=== PATIENT | male | born 1965 | race Caucasian/White ===

== ENCOUNTER 2022-06-28 18:55 | Emergency (ER) | payer BC, SELFPAY ==
[2022-06-28 18:59] VITALS: BP 187/107; PULSE 66; TEMP 36.7; O2SAT 96; BMI 33.9
--- NOTE | 2022-06-28 19:19 | ED_ITS ---
Did not see this patient. Signing to remove from cue. --Vidya HPI - Abdominal Pain General Time Seen by Provider: 19:19 Date Seen: 06/28/22 Chief Complaint: Abdominal Pain Stated Complaint: abdominal pain Time Seen by Provider: 06/28/22 19:19 Source: patient and RN notes reviewed Mode of arrival: ambulatory Limitations: no limitations History of Present Illness HPI narrative: Patient is a 56-year-old male coming in with epigastric pain that started this morning. He ate 2 [employer] bars and coffee for breakfast. Cannot say that the pain really started in any temporal relationship to that. He has not eaten since then though, just has a diminished appetite. No nausea or vomiting. States he has had normal bowel movements, is passing flatus, no change in urination. No fevers or chills. He did take some Tylenol, 1000 mg, earlier because of the pain and did take the edge off. He is still having pain. We did discussed pain management in he would agree to some Toradol. He has never had any abdominal surgeries before. No acute illness with any nausea vomiting diarrhea or respiratory symptoms. Does drink alcohol but only socially, has not had any in months. He does not feel any chest pain with this, does not radiate into his chest. When he takes a deep breath, can feel it in the epigastric area but feels like it certainly in his stomach and not in his chest by the discomfort is. MD elicited complaint: abdominal pain Related Data Home Medications Medication Instructions Recorded Confirmed lisinopril 10 mg tablet 10 mg PO DAILY 06/28/22 06/29/22 rosuvastatin 10 mg tablet 10 mg PO QPM 06/28/22 06/29/22 verapamil 120 mg tablet,extended 120 mg PO DAILY 06/28/22 06/29/22 release Previous Rx's Medication Instructions Recorded oxycodone 5 mg tablet 5 mg PO Q6H PRN pain #15 tabs 06/29/22 sennosides 8.6 mg capsule (senna) 8.6 mg PO DAILY PRN constipation 06/29/22 #90 caps Allergies Allergy/AdvReac Type Severity Reaction Status Date / Time No Known Drug Allergies Allergy Verified 06/29/22 10:15 Review of Systems Status of ROS Reports: 10 or more systems reviewed and unremarkable except as noted in History and below PFSH PFSH Social History Smoking Status: Never smoker Do you use any of these nicotine containing products: None Second hand tobacco smoke exposure: No How often do you have a drink containing alcohol: never AUDIT-C Alcohol total score: 0 Non-prescribed substance use: denies use Exam Const: Vital Signs, click to edit/add: Vital Signs - 24 hr 06/28/22 18:59 Temperature 98.0 F Pulse Rate [Pulse Oximeter] 66 Blood Pressure [Ri ght Upper Arm] 187/107 H Pulse Oximetry 96 Oxygen Delivery Me thod Room Air Documenting provider has reviewed patient's vital signs: yes Common normals: no apparent distress, oriented x3, no limitations, healthy appearing and alert General appearance: cooperative, comfortable, well kempt and well developed Nutritional appearance: overweight HENMT: Common normals: normocephalic, head/scalp atraumatic, hearing grossly normal bilaterally, external nose normal, nasal mucous membranes and turbinates normal and moist oral mucous membranes Head and scalp: normocephalic and atraumatic Nose: external nose normal and nasal mucous membranes and turbinates normal Eye: Common normals: PERRL, EOMs intact bilaterally, conjunctivae normal and no scleral icterus Conjunctiva: conjunctiva(e) normal Pupil: PERRL Neck & C-Spine: Common normals: full ROM, no lymphadenopathy, supple and no meningeal signs Resp: Common normals: normal respiratory effort, no retractions, no use of accessory muscles and clear to auscultation bilaterally Auscultation: clear to auscultation bilaterally Cardio: Common normals: regular rate, regular rhythm, S1 normal heart sound, S2 normal heart sound, no gallops, no clicks and no murmurs Rate: regular rate Rhythm: regular rhythm Heart sounds: S1 normal and S2 normal GI: Common normals: Normal to inspection, nondistended, normoactive bowel sounds present, soft to palpation, no hepatosplenomegaly and no masses Palpation: soft and no hepatosplenomegaly Other: Patient points to the epigastric area where the pain is, seems to be somewhat deeper than what I can palpate, maybe increases his pain somewhat. Neuro: Common normals: oriented x3 Sensorium/orientation: alert Meningeal signs: no meningeal signs Psych: Appearance: well kempt Course Course Hospital Course: Patient will be given IV Toradol for pain management. We will proceed with CT imaging. Will be getting full complement of labs. His symptomatology includes gallbladder, pancreas, upper GI a including gastritis ulcer disease. Will do troponin just to ensure this isn't an atypical presentation of cardiac manifestation. He will let us know if his pain is not improved with the Toradol. He understands he may need a gallbladder ultrasound if there should be concerns. Reevaluation(s) Reevaluation #1: Have shown patient a picture of his stones in his gallbladder. Reviewed acute cholecystitis. He is going to be allowed to go home this evening given he is pain-free, liver enzymes are elevated. He understands the plan, is in agreement with this. Time: 20:54 Additional Reevaluation(s): Given the normal EKG and his current laboratory evaluation, I find patient clear for trial of anesthesia for acute cholecystitis for gallbladder removal. Consultations Consultation #1: Patient case was discussed with our surgeon on-call . She did look at the CT, reviewed the case with me. She agrees that this is acute cholecystitis. The complication is is that we have no beds. Patient is hemodynamically stable, afebrile. His pain is improved after the Toradol. We are going to start oral Augmentin, send him with a few pain pills and he will return tomorrow to have his gallbladder out. If he has worsening symptoms overnight, he will return to the ED and we will intervene and hold him here until surgery time. He will need an EKG and COVID. Time: 20:54 Vital Signs Vital signs: Initial Vital Signs Temperature 98.0 F 06/28/22 18:59 Temperature Source Temporal Artery Scan 06/28/22 18:59 Pulse Rate 66 06/28/22 18:59 Blood Pressure 187/107 H 06/28/22 18:59 Blood Pressure Mean 133 H 06/28/22 18:59 Blood Pressure Position Sitting 06/28/22 18:59 Pulse Oximetry 96 06/28/22 18:59 Oxygen Delivery Method Room Air 06/28/22 18:59 Vital Signs Temperature 98.0 F 06/28/22 18:59 Pulse Rate 66 06/28/22 18:59 Blood Pressure 187/107 H 06/28/22 18:59 Pulse Oximetry 96 06/28/22 18:59 Oxygen Delivery Method Room Air 06/28/22 18:59 Temperature 98.0 F 06/28/22 18:59 Pulse Rate 66 06/28/22 18:59 Blood Pressure 187/107 H 06/28/22 18:59 Pulse Oximetry 96 06/28/22 18:59 Oxygen Delivery Method Room Air 06/28/22 18:59 MDM - Abdominal Pain Lab Data Attestation: I reviewed the patient's lab results. Labs: Lab Results 06/28/22 06/28/22 Range/Units 19:13 21:00 WBC 14.53 H (4.50-11.00) K/uL RBC 5.61 (4.30-5.90) m/uL Hgb 15.4 (13.5-17.5) gm/dL Hct 46.1 (37.0-53.0) % MCV 82 (80-100) fL MCH 28 (26-34) pg MCHC 33 (32-36) gm/dL RDW Coeff of Gloria 13.5 (11.5-15.5) % Plt Count 267 (140-440) K/uL Neut % (Auto) 74.1 H (42.0-72.0) % Lymph % (Auto) 18.7 L (20-44) % [place] % (Auto) 6.0 (0.0-11.0) % Eos % (Auto) 0.8 (0.0-7.0) % Baso % (Auto) 0.1 (0.0-3.0) % Neut # (Auto) 10.80 H (1.7-7.0) K/uL Lymph # (Auto) 2.70 (0.90-2.90) K/uL [place] # (Auto) 0.90 (0.00-0.90) K/UL Eos # (Auto) 0.10 (0.00-0.50) K/uL Baso # (Auto) 0.00 (0.00-0.30) K/uL Sodium 136 (135-149) mmol/L Potassium 3.8 (3.6-5.1) mmol/L Chloride 103 (96-114) mmol/L Carbon Dioxide 24 (20-32) mmol/L BUN 17 (7-30) mg/dL Creatinine 0.7 (0.5-1.5) mg/dL Estimated Creat Clear 127.79 Estimated GFR 107 ml/min Glucose 117 H (60-115) mg/dL Lactate 1.2 (0.5-1.9) mmol/L Calcium 9.0 (8.4-10.6) mg/dL Total Bilirubin 0.8 (0.1-1.5) mg/dL Direct Bilirubin 0.2 (0.0-0.5) mg/dL AST 30 (12-35) U/L ALT 38 (4-50) U/L Alkaline Phosphatase 85 (40-150) U/L Troponin I < 0.01 L (0.01-0.04) ng/mL C-Reactive Protein 0.7 (0.5-1.0) mg/dL NT-Pro-B Natriuret Pep 29 pg/mL Total Protein 7.9 (6.0-8.3) g/dL Albumin 4.6 (3.3-5.0) g/dL Lipase 74 (23-300) U/L SARS-CoV-2 (PCR) Negative SARS-CoV-2 (Negative) Imaging Data CT scan - abdomen: My impression: I see gallstones the gallbladder. Have called our surgeon to look at the imaging. Still awaiting Radiology over-read. ECG Data Attestation: I personally reviewed and interpreted this ECG as follows: (Sinus rhythm, 67 beats per minute. No ischemia. QT corrected 450 milliseconds. No concerning change on this EKG.) ECG interpretation date: 06/28/22 ECG interpretation time: 21:00 Discharge Plan Discharge Clinical Impression: Acute calculous cholecystitis Patient Disposition: Home, Self-Care Condition: Stable Instructions: Cholecystitis (ED), Laparoscopic Cholecystectomy (DC) Additional Instructions: Take Augmentin between 7 to 8:00 a.m. tomorrow morning with small sip of water. Otherwise, nothing to eat or drink after midnight tonight. You can use pain management if needed with just a small sip of water overnight. Would recommend 1000 mg of Tylenol every 8 hours baseline for pain. Have provided 4 tablets of 5 mg oxycodone which can be used for more severe pain, follow prescription instructions. Again, when taking pain medicines or the Augmentin, just a small sips of fluids, just enough to get the medicines down. You are going to return tomorrow morning likely around 9:00 a.m. to check in for your surgery. If staff does not contact you with a specific time, would plan on being here around 9:00 a.m. to check-in. Otherwise, if you have severe abdominal pain overnight, develops fever, have vomiting, do return to the ER and we will stabilize while you await surgery. If you take your verapamil in the morning, would recommend that you still take that with a small sip of water. Lisinopril can await until after your surgery is done if this is a morning medicine. Activity Level: Activity as Tolerated Diet Detail: Nothing to eat or drink after midnight with the exception of small sips of water to take medications. Prescriptions: No Action oxycodone 5 mg tablet 5 mg PO Q6H PRN (Reason: pain) Qty: 15 0RF senna 8.6 mg capsule 8.6 mg PO DAILY PRN (Reason: constipation) Qty: 90 0RF verapamil 120 mg tablet extended release 120 mg PO DAILY lisinopril 10 mg tablet 10 mg PO DAILY rosuvastatin 10 mg tablet 10 mg PO QPM Stand Alone Forms: [employer] Info Instructions
--- NOTE | 2022-06-28 19:29 | CRLHL7_ITS ---
For Patients: As a result of the Century Cures Act, medical imaging exams and procedure reports are released immediately into your electronic medical record. You may view this report before your referring provider. If you have questions, please contact your health care provider. INDICATION: Epigastric abdomen pain. Decreased appetite. TECHNIQUE: CT abdomen and pelvis acquired with 99 cc Isovue 370 IV contrast. COMPARISON: None. FINDINGS: Lower chest: Unremarkable. Liver: Unremarkable. Normal in size and attenuation. No suspicious masses. Gallbladder and bile ducts: Multiple gallbladder stones. No sign of inflammation and no biliary dilatation. Pancreas: Unremarkable. No mass or inflammation. Spleen: Unremarkable. Normal in size. No masses. Adrenal glands: Unremarkable. No nodules. Kidneys: There are bilateral benign-appearing cysts. Kidneys otherwise unremarkable. No hydronephrosis. GI tract: Unremarkable. Normal in caliber. No sign of mass or inflammation. Normal appendix. Vasculature: Abdominal aorta is normal in caliber. Mesenteric arteries are patent. Lymph nodes: No lymphadenopathy. Peritoneum/Abdominal Wall: Unremarkable. No sign of mass or infiltration. No free air or significant free fluid. Pelvis: Unremarkable. Bones: Unremarkable for age. IMPRESSION: Cholelithiasis with multiple moderately large gallbladder stones. No other CT signs of acute cholecystitis and no biliary dilatation. Remainder of the exam is unremarkable. Please note that all CT scans at this facility use dose modulation, iterative reconstruction, and/or weight-based dosing when appropriate to reduce radiation dose to as low as reasonably achievable. Dictated by Chceo Agawral MD @ 06/28/2022 9:33:15 PM (Electronically Signed)
[2022-06-28 19:36] LABS: Lactate* 1.2 mmol/L (0.5-1.9)
[2022-06-28] MEDS: KETOROLAC 15 MG/ML inj IVP (19:38)
[2022-06-28 19:42] LABS: Basophils Percent Auto 0.1 % (0.0-3.0); Eosinophils Percent Auto 0.8 % (0.0-7.0); Hematocrit 46.1 % (37.0-53.0); Hemoglobin* 15.4 gm/dL (13.5-17.5); Immature Granulocytes Pct Auto 0.3 %; Lymphocytes Percent Auto 18.7 % (20-44); Mean Corpuscular HGB Conc 33 gm/dL (32-36); Mean Corpuscular Hemoglobin 28 pg (26-34); Mean Corpuscular Volume 82 fL (80-100); Neutrophils Percent Auto 74.1 % (42.0-72.0); Platelet Count* 267 K/uL (140-440); RDW Coefficient of Variation % 13.5 % (11.5-15.5); Red Blood Count 5.61 m/uL (4.30-5.90); White Blood Count* 14.53 K/uL (4.50-11.00)
[2022-06-28 19:44] LABS: Slide Review Reflex No
[2022-06-28 19:48] LABS: Chloride* 103 mmol/L (96-114)
[2022-06-28 19:49] LABS: Albumin* 4.6 g/dL (3.3-5.0); Sodium* 136 mmol/L (135-149)
[2022-06-28 19:50] LABS: Potassium* 3.8 mmol/L (3.6-5.1)
[2022-06-28 19:51] LABS: Creatinine* 0.7 mg/dL (0.5-1.5); Est. Creatinine Clearance* 127.79; Estimated Glomerular Filt Rate 107 ml/min
[2022-06-28 19:52] LABS: Alkaline Phosphatase* 85 U/L (40-150); Aspartate Amino Transferase* 30 U/L (12-35); Bilirubin Direct* 0.2 mg/dL (0.0-0.5); Bilirubin Total* 0.8 mg/dL (0.1-1.5); Blood Urea Nitrogen* 17 mg/dL (7-30); Carbon Dioxide* 24 mmol/L (20-32); Lipase* 74 U/L (23-300); Total Protein* 7.9 g/dL (6.0-8.3)
[2022-06-28 19:53] LABS: Alanine Aminotransferase* 38 U/L (4-50); Glucose* 117 mg/dL (60-115)
[2022-06-28 19:55] LABS: C Reactive Protein* 0.7 mg/dL (0.5-1.0)
[2022-06-28 20:04] LABS: NT Pro B Type NatriureticPept* 29 pg/mL
[2022-06-28 20:17] LABS: Troponin I* < 0.01 ng/mL (0.01-0.04)
[2022-06-28] MEDS: AMOXICILLIN/CLAVULANATE 875 mg/125 mg TABLET PO ×2 (21:00)
--- NOTE | 2022-06-28 21:31 | ED.NURSE ---
Discharge paperwork was reviewed in depth by charge nurse. Medication (antibiotic) to take in the morning with a sip of water was also reviewed as well. Pt understands he can be here no later that 0830 tomorrow morning for procedure.
[2022-06-28 21:53] LABS: SARS PCR* Negative SARS-CoV-2 (Negative)
== END 2022-06-28 21:09 | disposition home or self-care (01) ==
PROVIDERS: Emergency Provider Family Medicine
DX: K80.00 Calculus of gallbladder with acute cholecystitis without obstruction (principal)
CPT/HCPCS: 36415; 74177; 80053; 82248; 83605; 83690; 83880; 84484; 85025; 86140; 87635; 96374; 99284; A9270; J1885; Q9967

== ENCOUNTER 2022-06-29 09:53 | Day surgery (SDC) | payer BC, SELFPAY ==
[2022-06-29] VITALS (13 sets, daily range): BP systolic 113–174; BP diastolic 76–106; PULSE 71–89; RESP 12–20; TEMP 36.7–38; O2SAT 16–95; BMI 34.3
[2022-06-29] MEDS: LACTATED RINGERS 1000 ML 1,000 ML 100 ML IV ×2 (10:20→12:30)
--- NOTE | 2022-06-29 10:47 | P.GSCN_ITS ---
History of Present Illness Consult details Date Seen: 06/29/22 Consult date: 06/29/22 Narrative: Patient presented to the emergency department last evening for worsening epigastric abdominal pain. He says that the pain came on yesterday around 9:00 a.m. in the morning. The pain was centered in the mid upper abdomen, but has since migrated to the right side under his diaphragm. He has never had pain like this before. When he was in the emergency department yesterday the pain was partially helped by pain medications. This morning he took his last pain pill at 4:00 a.m. and is rating the pain 8/10. He has never had abdominal surgery before. He does report some associated nausea, no emesis. Low-grade fever on admission here, denies any fever or chills at home. He did take a few pills of Augmentin, which were prescribed to him at the emergency department. Review of Systems Status of ROS: Reports: 10 or more systems reviewed and unremarkable except as noted in History and below PFSH PFS Social History Smoking Status: Never smoker Do you use any of these nicotine containing products: None Second hand tobacco smoke exposure: No How often do you have a drink containing alcohol: never AUDIT-C Alcohol total score: 0 Non-prescribed substance use: denies use Meds Home Medications and Allergies Home Medications Medication Instructions Recorded Confirmed Type lisinopril 10 mg tablet 10 mg PO DAILY 06/28/22 06/29/22 History rosuvastatin 10 mg tablet 10 mg PO QPM 06/28/22 06/29/22 History verapamil 120 mg tablet,extended 120 mg PO DAILY 06/28/22 06/29/22 History release Allergies Allergy/AdvReac Type Severity Reaction Status Date / Time No Known Drug Allergies Allergy Verified 06/29/22 10:15 Exam Narrative: Exam Narrative: General: Alert and oriented, no acute distress Respiratory: Equal breath rise bilaterally, maintained on room air CV: Regular rhythm and rate, well perfused Abdomen: Soft, tender to palpation epigastric and right upper quadrant with no guarding or rebound Const: Vital Signs, click to edit/add: Vital Signs - 24 hr 06/29/22 10:30 Temperature 100.4 F H Pulse Rate 81 Respiratory Rate 20 Blood Pressure 174/106 H Pulse Oximetry 95 Oxygen Delivery Me thod Room Air Results Labs Labs: All other labs normal. LFTs within normal limits. WBC [address] scan report/results: report reviewed and image reviewed Assessment and Plan Assessment and plan (1) Acute calculous cholecystitis: Status: Acute Plan Patient is a 56-year-old male, otherwise healthy, who presented to the emergency department with the workup and clinical findings consistent with acute cholecystitis. I had a detailed conversation with the patient regarding the diagnosis of acute cholecystitis. We discussed the treatment options including observation with diet modification and laparoscopic cholecystectomy. We discussed the risks of surgery (including but not limited to) the risks of bleeding, infection, injury to other structures in the abdomen including bile duct injury, bile leak and conversion to an open operation. We discussed the possibility that the patient's pain not improve with surgery. We discussed the possibility of perman ent post-operative diarrhea that may require medical management. Additionally, the conceivably of complications requiring additional surgery or further hospitalization were also discussed including the risks of MT, respiratory failure, stroke and blood clots. The patient voiced an understanding of our conversation, had the opportunity to ask questions, agreed to accept the risks of surgery and asked that we proceed with surgery.
[2022-06-29] MEDS: SODIUM CHLORIDE 0.9 % (FLUSH) 10 ML SYRINGE IVF (10:52)
--- NOTE | 2022-06-29 10:55 | W.ANESCHARGE ---
Anesthesia Charges Start Date/Time Anesthesia Start Date: 06/29/22 Anesthesia Start Time: 11:05 Stop Date/Time Anesthesia Stop Date: 06/29/22 Anesthesia Stop Time: 13:15
[2022-06-29] MEDS: PIPERACILLIN/TAZOBACTAM 3.375 GM INJ IVPB (11:20)
[2022-06-29] MEDS: BUPIVACAINE 0.5% 30 ML 20 ML INJECTION (13:02)
--- NOTE | 2022-06-29 13:04 | P.GSOP_ITS ---
Operative Note Date of procedure: 06/29/22 Pre-op diagnosis: Acute cholecystitis Post-op diagnosis: Same Type of Procedure: Laparoscopic cholecystectomy Indications: Patient is a 56-year-old male who presented to the emergency department with signs and symptoms consistent with acute cholecystitis. Risks and benefits of operative intervention were discussed at length with the patient. Risks included but was not limited to: Bleeding, infection, risk of damage to surrounding structures, possible need for additional procedures, possible need to convert to an open operation and postoperative complications such as pneumonia, pulmonary emboli or MS. All questions and concerns were addressed with the patient agreeing to proceed. Procedure Description: After discussing the risks and benefits of the procedure, the patient signed informed consent.? The operative site was marked and the patient was brought to the operating room and placed on the operating table in supine position.? Care was taken to pad the patient's pressure points.?? The patient was then intubated by anesthesia.?? The operative site was then prepped and draped in the usual sterile fashion.? A time-out was then performed. Entrance to the abdomen was gained via a 5 mm Visiport in the left upper quadrant. The abdomen was insufflated and briefly surveyed for signs of injury. There was none. 11 mm umbilical port was placed as well as 2 working ports along the right costal margin. Patient was then placed in reverse Trendelenburg position with the right side up. The gallbladder fundus was grasped and retracted cephalad. A significant amount of omental adhesions were covering the gallbladder. These were taken down carefully with electrocautery. The infundibulum was very distended, once it was visualized. This was decompressed with a laparoscopic needle with removal of 60 mL sludge. The infundibulum was grasped. A combination of hook cautery and blunt dissection was used to carefully dissect out the cystic duct and artery until they could clearly be seen entering the gallbladder without any intervening structures. This portion of the dissection was made difficult secondary to the associated inflammation and edema. The gallbladder was dissected off the cystic plate to achieve the critical view. Once this was achieved the cystic duct and artery (which was found on the posterior aspect of the cystic duct) were each clipped with 2 clips proximally and 1 clip distally and transected with the scissors. The gallbladder was then taken off of the liver bed. And removed from the abdomen using an Endo- Catch bag. The gallbladder bed was surveyed for hemostasis. A small amount of bile which had spilled was suctioned from the abdomen. the ports were then removed under direct vision. The umbilical port fascia was closed with 0 Vicryl. The skin was closed with absorbable subcuticular suture. Instrument sponge and needle counts were correct at the end of the case. The patient was then woken and transferred to the PACU in stable condition. Findings: Acute cholecystitis Anesthesia: GETA Surgeon: Hoda Gil MD Estimated blood loss (mL): 5 Specimen: Gallbladder Condition: stable Disposition: same day
--- NOTE | 2022-06-29 13:15 | W.ANESCHARGE ---
Anesthesia Charges Start Date/Time Anesthesia Start Date: 06/29/22 Anesthesia Start Time: 11:05 Stop Date/Time Anesthesia Stop Date: 06/29/22 Anesthesia Stop Time: 13:15
[2022-06-29] MEDS: fentaNYL 100 MCG/2 ML inj 50 MCG IVP ×2 (13:26→13:41)
[2022-06-29] MEDS: KETOROLAC 15 MG/ML inj IVP (14:08)
[2022-06-29] MEDS: OXYCODONE 5 MG TABLET PO (14:09)
== END 2022-06-29 19:00 | disposition home or self-care (01) ==
PROVIDERS: Visit Provider Surgery
PROC: 0FT44ZZ Resection of Gallbladder, Percutaneous Endoscopic Approach (ICD-10-PCS; CPT 47562; principal; 2022-06-29 11:15)
DX: K80.00 Calculus of gallbladder with acute cholecystitis without obstruction (principal)
CPT/HCPCS: 47562; 00790; 88304; A9270; J0330; J1170; J1885; J2250; J2405; J2543; J2704; J2710; J3010; J3490; J7120